=== PATIENT | male | born 1985 | race Caucasian/White ===

== ENCOUNTER 2017-04-03 14:35 | Inpatient (IN) | payer OTHER ==
[~2017-04-03] VITALS: Ht 190.5 cm; Wt 105.0 kg
[2017-04-03 15:58] LABS: MEAN CORPUSCULAR HEMOGLOBIN 30.8 pg (27.0-33.0); MEAN CORPUSCULAR HGB CONC 34.3 g/dl (32.0-36.5); RED CELL DISTRIBUTION WIDTH 13.1 % (11.5-14.5); WHITE BLOOD COUNT 7.1 K/mm3 (4.0-10.0)
[2017-04-03 16:27] LABS: METHADONE URINE NEGATIVE (NEGATIVE)
[2017-04-03 16:29] LABS: ALBUMIN 4.1 GM/DL (3.2-5.2); ALBUMIN/GLOBULIN RATIO 1.14 (1.00-1.93); ALKALINE PHOSPHATASE 107 U/L (45-117); ALT/SGPT 26 U/L (12-78); ANION GAP 10 MEQ/L (8-16); AST/SGOT 18 U/L (15-37); BILIRUBIN,DIRECT 0.2 MG/DL (0.0-0.2); BILIRUBIN,TOTAL 0.9 MG/DL (0.2-1.0); BLOOD UREA NITROGEN 15 MG/DL (7-18); CALCIUM LEVEL 8.9 MG/DL (8.5-10.1); CARBON DIOXIDE LEVEL 25 MEQ/L (21-32); CHLORIDE LEVEL 105 MEQ/L (98-107); GLOMERULAR FILTRATION RATE > 60.0 (>60); GLUCOSE, FASTING 100 MG/DL (70-105); POTASSIUM SERUM 3.9 MEQ/L (3.5-5.1); SODIUM LEVEL 140 MEQ/L (136-145); TOTAL PROTEIN 7.7 GM/DL (6.4-8.2)
[2017-04-03] MEDS ORDERED: MOM 30ML SUSPENSION UDC PO PRN (18:00)
[2017-04-03] MEDS ORDERED: ACETAMINOPHEN TAB 650MG DOSE (2X325MG) PO PRN (18:00)
[2017-04-03] MEDS ORDERED: MAALOX 30 ML SUSP *UDC PO PRN (18:00)
[2017-04-03] MEDS: traZODone 50 MG TAB PO SCH (21:00)
[2017-04-04 06:36] VITALS: BP 141/65
--- NOTE | 2017-04-04 08:21 | HPEPDOC ---
Medical History and Physical Date of Admission Apr 03, 2017 at 17:52 History and Physical PCP: [facility] ATTENDING: Dr. Richie Barnes HPI:31yoM admitted to [facility] for unspecified depressive disorder, being medically examined today. No acute medical complaints today. Denies any fevers, chills, weakness, fatigue, HIGH, CP, SOB, cough, palpitations, abdominal pain, N/V/D or changes in bowel or bladder habits. 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 Tobacco use: Denies ETOH: One to 2 times per week 2-4 drinks Illicit Drugs: Denies IV Drug Use: Denies Tattoos done unprofessionally: Denies FAMHX: Mother: Alive, diabetes, hypertension, CHF Father: Alive, hypertension Siblings: One half sibling Alive, unknown Children: Alive, well Unexpected deaths due to medical reasons: None. ROS: As noted in HPI, otherwise 11pt ROS of systems reviewed and unremarkable. PE: GEN: 31 yo M, appears stated age. Well-nourished, well developed. No acute distress. Alert and oriented x 3. Pleasant, interactive. HEENT: Normocephalic, atraumatic. Pupils are equal, round, and reactive to light. Extraocular movements are intact. No nystagmus appreciated. Sclera are nonicteric. Conjunctiva without injection. Nose midline. Nasal turbinates without bogginess. EACs both patent BL. TMs both visualized and hernandez with good cone of light, no bulging or erythema. No facial asymmetry. Moist mucous membranes. Dentition fair. Pharynx pink and moist, no cobblestoning. Neck supple , trachea midline. No lymphadenopathy or thyromegaly appreciated. CHEST: Regular rate and rhythm, +S1, +S2 LUNGS: Clear to auscultation bilaterally. No wheezes, rales, or rhonchi. Breathing appears symmetric and easy. Patient is speaking in full sentences. No accessory muscle use. ABD: Round, soft, non-tender, non-distended. +Bowel sounds throughout. No rebound or guarding. No costovertebral angle tenderness. EXT: Pulses 2+ bilaterally dorsalis pedis and radial. No lower extremity edema appreciated. SKIN: Gate, dry, warm. Capillary refill <2sec. No rashes. NEURO: Alert and oriented x 3. Cranial nerves III-XII are intact. No focal deficits appreciated. EKG: pending A&P: 31yoM admitted to [facility] for unspecified depressive disorder 1. Psych. Plan per Psychiatry. Obtain baseline EKG to assure the safety of psychiatric medications as they can prolong the QT interval. 2. Follow up with PCP on discharge. 3. Staff member Tomas present throughout exam. Vital Signs Vital Signs Date Time Temp Pulse Resp B/P (MAP) Pulse Ox O2 Delivery O2 Flow Rate FiO2 04/04/17 06:36 99.1 66 16 141/65 (90) Room Air 04/03/17 18:27 98 Laboratory Data Labs 24H Laboratory Tests 2 04/03/17 15:05: Anion Gap 10, Glomerular Filtration Rate > 60.0, Calcium Level 8.9, Aspartate Amino Transf (AST/SGOT) 18, Alanine Aminotransferase (ALT/SGPT) 26, Alkaline Phosphatase 107, Total Bilirubin 0.9, Direct Bilirubin 0.2, Total Protein 7.7, Albumin 4.1, Albumin/Globulin Ratio 1.14, Thyroid Stimulating Hormone (TSH) 0.612, Salicylates Level < 1.7L, Urine Amphetamines Screen NEGATIVE, Urine Benzodiazepines Screen NEGATIVE, Urine Opiates Screen NEGATIVE, Urine Methadone Screen NEGATIVE, Acetaminophen Level < 2.0L, Urine Barbiturates Screen NEGATIVE , Urine Phencyclidine Screen NEGATIVE, Urine Cocaine Metabolite Screen NEGATIVE , Urine Cannabinoids Screen NEGATIVE, Ethyl Alcohol Level 0.004 CBC/BMP Laboratory Tests 04/03/17 15:05 Red Blood Count 4.95, Mean Corpuscular Volume 90.0, Mean Corpuscular Hemoglobin 30.8, Mean Corpuscular Hemoglobin Concent 34.3, Red Cell Distribution Width 13.1 Home Medications No Active Prescriptions or Reported Meds Allergies Coded Allergies: No Known Allergies (Unverified , 04/03/17) Keely Hernandez Apr 04, 2017 08:21
[2017-04-04] MEDS ORDERED: hydrOXYzine 25 MG TAB PO PRN (09:15)
--- NOTE | 2017-04-04 17:01 | ECGEPIP ---
Stationary ECG Study [facility] Test Date: 2017-04-04 Pat Name: ATILIO WALLS Department: Room: [place] [address] Gender: M Metal Temperer: TOI : 1985 Requested By: Keely Hernandez Order Number: [id number] Reading MD: Richie Barnes Measurements Intervals [place] Rate: 49 P: 36 NC: 158 QRS: 80 QRSD: 97 T: 59 QT: 422 QTc: 382 Interpretive Statements SINUS BRADYCARDIA WITH MARKED SINUS ARRHYTHMIA Nonspecific ST-T wave abnormalities- likely early repolarization Comparison tracing not on file Electronically Signed On 04-04-2017 17:01:23 EDT by Richie Barnes
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
[2017-04-04 18:00] VITALS: BP 133/72
[2017-04-04] MEDS: ESCITALOPRAM OXALATE 5MG TABLET (LEXAPRO) PO SCH (20:48)
[2017-04-04] MEDS: traZODone 50 MG TAB PO SCH (21:00)
[2017-04-05 06:32] VITALS: BP 110/53
--- NOTE | 2017-04-05 14:10 | MHIPNPDOC ---
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 No significant past medical history, brought in by chain of command for suicidal ideations. Patient was seen and evaluated. He reported that he has been feeling better and has been going to group therapy and milieu treatment. He thinks that he has been learning new coping skills and also learning how psychiatry inpatient works. He opened up more about his illness and reports that even though he denied any anxiety yesterday. He has been identifying that he has anxiety attacks where he has been feeling shortness of breath, palpitation, chest tightness and tingling and numbness in the body sweating along with worrisome thoughts In his mind. He reports that it lasts for about few minutes and it goes away by itself. Discussed about relaxation techniques and breathing exercises and also discussed about when necessary medications to help with anxiety. He reports that he was able to sleep better Yesterday and has been eating fine. He reports that he does help anger issues and was going to anger management up to 4 classes, but he stopped thinking that he has learned everything but when he was trying to implement them, He was not able to do that. He is willing to go back in the outpatient to help more anger management classes. He reports he started taking medication of Lexapro, but this morning he was having some headache. Discussed the possibility of temporary side effect of medications. VITAL SIGNS: See below. CURRENT MEDICATIONS: See below. MENTAL STATUS EXAMINATION: 31yo male sitting in the chair, looks appropriate for the stated age, fair hygiene and grooming, normal psychomotor activities, no abnormal movements, cooperative with fair eye contact, speech is normal in rate, rhythm, amount and prosody, mood is 'sad & irritable', affect constricted and mood congruent, thought process is logical and goal directed, denies suicidal and homicidal ideations, denies hallucinations, no delusions elicited, aaox3, fair immediate, short term and rn long term care memory, limited insight, judgement and impulse control DIAGNOSES: 1. Major depression without psychosis. 2.. Impulse control disorder. Anxiety disorder, unspecified. ASSESSMENT: Patient seems to be opening up more about his problems and trying to learn new or coping skills MANAGEMENT PLAN:. Continue current management. Titrate the dose of Lexapro TIME SPENT: 15 minutes. Vital Signs Vital Signs Date Time Temp Pulse Resp B/P (MAP) Pulse Ox O2 Delivery O2 Flow Rate FiO2 04/05/17 06:32 97.9 48 18 110/53 (72) 04/04/17 06:36 Room Air 04/03/17 18:27 98 Current Medications Current Medications Acetaminophen (Tylenol Tab) 650 mg Q6HP PRN PO HEADACHE or DISCOMFORT; Start at 18:00; Stop 05/03/17 at 17:59 Al Hydrox/Mg Hydrox/Simethicone (Mylanta) 30 ml Q4HP PRN PO HEARTBURN/ INDIGESTION; Start 04/03/17 at 18:00; Stop 05/03/17 at 17:59 Escitalopram Oxalate (Lexapro) 5 mg QHS PO Last administered on 04/04/17t 20:48 ; Start 04/04/17 at 21:00; Stop 05/04/17 at 20:59 Home Med (Med Rec Complete!) ASDIRECTED XX ; Start 04/03/17 at 18:30; Stop 07/08 at 18:33; Status DC Hydroxyzine HCl (Atarax) 25 mg Q6HP PRN PO ANXIETY; Start 04/04/17 at 09:15; Stop 05/04/17 at 09:14 Magnesium Hydroxide (Milk Of Magnesia) 30 ml DAILYPRN PRN PO CONSTIPATION; Start 04/03/17 at 18:00; Stop 05/03/17 at 17:59 Trazodone HCl (Desyrel) 50 mg QHS PO ; Start 04/03/17 at 21:00; Stop 05/03/17 at 20:59 Allergies Coded Allergies: No Known Allergies (Unverified , 04/03/17) MATTHEW YANES MD Apr 05, 2017 14:10
[2017-04-05 18:00] VITALS: BP 136/75
[2017-04-05] MEDS: traZODone 50 MG TAB PO SCH (21:00)
[2017-04-05] MEDS: ESCITALOPRAM OXALATE 5MG TABLET (LEXAPRO) PO SCH (21:05)
[2017-04-06 06:39] VITALS: BP 101/63
--- NOTE | 2017-04-06 14:33 | MHIPNPDOC ---
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 No significant past medical history, brought in by chain of command for suicidal ideations. Patient was seen and evaluated. He reported that he has been feeling better and has been going to group therapy and milieu treatment. He thinks that he has been learning new coping skills. He reports that he was able to sleep better Yesterday and has been eating fine. He reports that he does have anger issues. He is willing to go back in the outpatient to help more anger management classes. He reports he started taking medication of Lexapro, but this morning he was having some headache. Discussed the possibility of temporary side effect of medications. He reports that he has been thinking about his relationship with his and he is not allowed to contact with her again because she has filed for order of protection through [employer], but in future he would like to get together with his and have son living together, but if she goes for divorce. He might even consider giving up on custody for his son if he is able to get unsupervised visit with son. He also reported that he thinks catastrophically and that makes him more angry whenever there is an issue which leads to him overreact. He currently denies any suicidal or homicidal ideations , but reported that when he got admitted, He was so frustrated with his that he wanted to confront her, but denies any thoughts of killing anyone. VITAL SIGNS: See below. CURRENT MEDICATIONS: See below. MENTAL STATUS EXAMINATION: 31yo male sitting in the chair, looks appropriate for the stated age, fair hygiene and grooming, normal psychomotor activities, no abnormal movements, cooperative with fair eye contact, speech is normal in rate, rhythm, amount and prosody, mood is 'sad & irritable', affect constricted and mood congruent, thought process is logical and goal directed, denies suicidal and homicidal ideations, denies hallucinations, no delusions elicited, aaox3, fair immediate, short term and jail memory, limited insight, judgement and impulse control DIAGNOSES: 1. Major depression without psychosis. 2.. Impulse control disorder. Anxiety disorder, unspecified. ASSESSMENT: Patient seems to be opening up more about his problems and trying to learn newer coping skills MANAGEMENT PLAN:. Continue current management. Titrate the dose of Lexapro TIME SPENT: 15 minutes. Vital Signs Vital Signs Date Time Temp Pulse Resp B/P (MAP) Pulse Ox O2 Delivery O2 Flow Rate FiO2 04/06/17 06:39 97.6 65 16 101/63 (76) 04/04/17 06:36 Room Air 04/03/17 18:27 98 Current Medications Current Medications Acetaminophen (Tylenol Tab) 650 mg Q6HP PRN PO HEADACHE or DISCOMFORT; Start at 18:00; Stop 05/03/17 at 17:59 Al Hydrox/Mg Hydrox/Simethicone (Mylanta) 30 ml Q4HP PRN PO HEARTBURN/ INDIGESTION; Start 04/03/17 at 18:00; Stop 05/03/17 at 17:59 Escitalopram Oxalate (Lexapro) 5 mg QHS PO Last administered on 04/05/17t 21:05 ; Start 04/04/17 at 21:00; Stop 05/04/17 at 20:59 Home Med (Med Rec Complete!) ASDIRECTED XX ; Start 04/03/17 at 18:30; Stop 07/08 at 18:33; Status DC Hydroxyzine HCl (Atarax) 25 mg Q6HP PRN PO ANXIETY; Start 04/04/17 at 09:15; Stop 05/04/17 at 09:14 Magnesium Hydroxide (Milk Of Magnesia) 30 ml DAILYPRN PRN PO CONSTIPATION; Start 04/03/17 at 18:00; Stop 05/03/17 at 17:59 Trazodone HCl (Desyrel) 50 mg QHS PO ; Start 04/03/17 at 21:00; Stop 05/03/17 at 20:59 Allergies Coded Allergies: No Known Allergies (Unverified , 04/03/17) MATTHEW YANES MD Apr 06, 2017 14:33
[2017-04-06 18:00] VITALS: BP 116/57
[2017-04-06] MEDS: traZODone 50 MG TAB PO SCH (21:00)
[2017-04-06] MEDS: ESCITALOPRAM OXALATE 10 MG TAB (LEXAPRO) PO SCH (21:05)
[2017-04-07 06:48] VITALS: BP 125/56
[2017-04-07 18:00] VITALS: BP 129/68
--- NOTE | 2017-04-07 18:10 | MHIPN ---
DATE: 04/07/2017 CHIEF COMPLAINT: Feels better. SUBJECTIVE: Is seen for followup in the presence of staff. Says feels better, less anxious and less irritated, also less depressed. Sleep is fair. MENTAL STATUS EXAMINATION: Neat, cooperative. No agitation. Coherent. Affect is reactive, fairly broad. At present, denies any suicidal thoughts or intents. No homicidal ideas of intents. Currently, no evidence of any psychosis. Cognition is grossly intact. Judgment is good. Insight is possibly improved. ASSESSMENT: 1. Major depressive disorder. 2. Possibility of impulse control disorder needs to be considered. PLAN: Continue current care, observations, and I would suggest a family meeting with his prior to considering discharge to help address marital difficulties. He is to be encouraged to participate in activities on the unit. VITAL SIGNS: Blood pressure 125/56, pulse 54, temperature is 98.1.
[2017-04-07] MEDS: traZODone 50 MG TAB PO SCH (21:00)
[2017-04-07] MEDS: ESCITALOPRAM OXALATE 10 MG TAB (LEXAPRO) PO SCH (21:10)
[2017-04-08 06:50] VITALS: BP 118/55
[2017-04-08 18:00] VITALS: BP 115/55
[2017-04-08] MEDS: traZODone 50 MG TAB PO SCH (20:35)
[2017-04-08] MEDS: ESCITALOPRAM OXALATE 10 MG TAB (LEXAPRO) PO SCH (21:06)
[2017-04-09 06:00] VITALS: BP 111/56
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
[2017-04-09 18:00] VITALS: BP 136/70
[2017-04-09] MEDS: traZODone 50 MG TAB PO SCH ×2 (20:22→21:05)
[2017-04-09] MEDS: ESCITALOPRAM OXALATE 10 MG TAB (LEXAPRO) PO SCH (21:04)
[2017-04-10 06:00] VITALS: BP 116/61
--- NOTE | 2017-04-10 13:26 | MHIPN ---
DATE: 04/10/2017 Patient today not expressing significant feelings of depression nor suicidal ideation. As reported previously, patient has had feelings of being overwhelmed and stressed, especially after having his first son. He had been quite self critical about his ability to take care of the child. He has had violent episodes and most recently as mentioned yesterday, significant alcohol intake on weekends. He has given us permission to speak to his . I am suggesting perhaps that I call his for further information as well as having Posada call. Medication at this time will be as per . I increased his citalopram to 20 mg nightly. MENTAL STATUS EXAMINATION: Eye contact is good. Speech is normal. No disturbance of thought process. No loose associations. Orientation is full in three spheres. Judgment and insight to be determined. No abnormal psychotic thoughts. Recent and remote memory intact. Attention and concentration intact. No disturbance of language. Full fund of knowledge. Mood is good. Affect is neutral. DIAGNOSIS: Adjustment disorder with depressed mood. Rule out bipolar disorder. ADDENDUM: The sixth sentence of the first paragraph should read as follows: I am suggesting perhaps that I call his for further information. The first sentence of the second paragraph should read as follows: Medication at this time will be as per Dr. Silva. Addendum Dictated: MAYO 04/19/2017 1413 Addendum Transcribed: leo 05/01/2017 [id number] SARATH
[2017-04-10 18:00] VITALS: BP 122/64
[2017-04-10] MEDS: ESCITALOPRAM OXALATE 10 MG TAB (LEXAPRO) PO SCH (20:49)
[2017-04-11 07:00] VITALS: BP 123/66
--- NOTE | 2017-04-11 15:30 | MHIPN ---
DATE: 04/11/2017 Fernando Bateman was seen by me today and discussed in staff. I suggested to staff that they contact his , who he is from, for the purpose of meeting with her concerning his diagnosis and their marital status. I met with the patient, whose mood was fair. He does not think he is bipolar as his has suggested, but thinks he just reacts badly to situations. He states he needs to stop lying to his and needs to get control of his temper. This will be discussed with his tomorrow. MENTAL STATUS EXAMINATION: Speech is normal. No disturbance of thought process. No loose associations. No abnormal or psychotic thoughts. Judgment and insight are poor. Fully oriented. Recent and remote memory intact. He has full attention and concentration. No disturbance of language. Full fund of knowledge. Mood is fair, affect is congruent. PLAN: Meeting tomorrow with patient and . No change in medication at this time.
[2017-04-11 18:25] VITALS: BP 127/70
[2017-04-11] MEDS: traZODone 50 MG TAB PO SCH (21:00)
[2017-04-11] MEDS: ESCITALOPRAM OXALATE 10 MG TAB (LEXAPRO) PO SCH (21:05)
[2017-04-12 07:02] VITALS: BP 115/60
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
[2017-04-12 18:00] VITALS: BP 126/61
[2017-04-12] MEDS: ESCITALOPRAM OXALATE 10 MG TAB (LEXAPRO) PO SCH (20:49)
[2017-04-12] MEDS: traZODone 50 MG TAB PO SCH (20:49)
[2017-04-13 06:23] VITALS: BP 121/58
--- NOTE | 2017-04-13 14:07 | WAPSY-FUP ---
DATE: 04/13/2017 Mr. Bateman discussed with me that he feels improved on his Lexapro. He would like to return to [facility] and engage with behavioral health anger management and continue to take his medication. He says he feels significantly better taking Lexapro and that he feels less angry and upset during arguments. He does not feel that he has a significantly uncontrolled mood disorder. He states he has over reacted in the past and feels that his suicide statements that he made in the past were related to his concerns about his previous marriage ending. MENTAL STATUS EXAMINATION: Speech is normal. No disturbance of thought process. No loose associations. No abnormal or psychotic thoughts. Judgment and insight are intact, fully oriented. Recent and remote memory are intact. Attention and concentration are normal. Fund of knowledge is normal. Mood is improved. Affect is brighter. PLAN: Discharge patient Sunday following chain of command meeting. Recommendation for behavioral health followup as above.
[2017-04-13 18:25] VITALS: BP 136/64
[2017-04-13] MEDS: traZODone 50 MG TAB PO SCH (20:41)
[2017-04-13] MEDS: ESCITALOPRAM OXALATE 10 MG TAB (LEXAPRO) PO SCH (21:01)
[2017-04-14 07:13] VITALS: BP 122/56
[2017-04-14 18:18] VITALS: BP 136/59
[2017-04-14] MEDS: traZODone 50 MG TAB PO SCH (20:22)
[2017-04-14] MEDS: ESCITALOPRAM OXALATE 10 MG TAB (LEXAPRO) PO SCH (21:00)
[2017-04-15 06:24] VITALS: BP 121/62
[2017-04-15 18:23] VITALS: BP 122/58
[2017-04-15] MEDS: ESCITALOPRAM OXALATE 10 MG TAB (LEXAPRO) PO SCH (20:53)
[2017-04-15] MEDS: traZODone 50 MG TAB PO SCH (21:21)
[2017-04-16 06:43] VITALS: BP 120/60
--- NOTE | 2017-04-16 11:28 | IPN ---
DATE OF SERVICE: 04/16/2017 I met with Mr. Bateman today. He was informed over the weekend that his is filing for divorce. He states "How am I supposed to live without my and son?" He states "There is no point in trying." He states "She doesn't want to be with me." He states "There is no sense in trying to work." Apparently, over the weekend, he told her he would stay on medications but would consider stopping them. He states he feels suicidal all the time and that at one time soon he hopes he has the courage to kill himself. He states he is sick of this life. This replicates his statement that his states he made that he was "hoping to go to [place] so he could ." MENTAL STATUS EXAMINATION: Speech is slow. Thought processes slow. No loose associations. No psychotic thoughts. Positive suicidal ideation. Judgment and insight poor. He is fully oriented. Recent and remote memory intact. Attention and concentration intact. Language is within normal limits. Full fund of knowledge. Mood is low. Affect is sad. IMPRESSION: Major depression. PLAN: Will continue the hospitalization and notify chain of command that this man needs long-term treatment.
[2017-04-16 18:00] VITALS: BP 101/55
[2017-04-16] MEDS: traZODone 50 MG TAB PO SCH (20:52)
[2017-04-16] MEDS: ESCITALOPRAM OXALATE 10 MG TAB (LEXAPRO) PO SCH (20:52)
[2017-04-17 06:19] VITALS: BP 108/63
--- NOTE | 2017-04-17 16:44 | MHIPN ---
DATE: 04/17/2017 I met with Fernando Bateman today. He states he is feeling better. We have taken him off of one-to-one. He states the reality of his him has become quite painful the more he talked about it, but today he is feeling he is going to have to being "dealing with it." Eye contact still poor. MENTAL STATUS EXAMINATION: His speech continues to be slow. His thought processes continue to be slow. He has no psychotic thoughts. Today he denies any suicidal ideation or intent. Judgment and insight are poor. He is fully oriented. Recent and remote memory are intact. Attention and concentration intact. Language is within normal limits. Full fund of knowledge. Mood is low. Affect is sad. IMPRESSION: Continues to be major depression. Due to his depression and what may be personality difficulties, we continue to suggest the possibility of long-term treatment.
[2017-04-17 18:00] VITALS: BP 122/64
[2017-04-17] MEDS: ESCITALOPRAM OXALATE 10 MG TAB (LEXAPRO) PO SCH (21:01)
[2017-04-17] MEDS: traZODone 50 MG TAB PO SCH (21:01)
[2017-04-18 06:59] VITALS: BP 117/57
--- NOTE | 2017-04-18 16:08 | MHIPN ---
DATE: 04/18/2017 I met with Fernando Bateman today. His eye contact is improved and states he is feeling better. He states he is only have side effect of sweating from his medication. He repeats that he is no longer suicidal. A longer-term treatment has been suggested to him due to problems that he feels have been festering for a long period of time. MENTAL STATUS EXAMINATION: Speech is of normal rate and rhythm. Thought processes seem also of a normal rate. He denies psychotic thoughts. He denies any suicidal ideation or intent. Judgment and insight are improving. He is fully oriented. Recent and remote memory intact. Attention and concentration intact. Language within normal limits. Full fund of knowledge. Mood is neutral. Affect is neutral. DIAGNOSES: Major depression and past history suggestive of personality difficulties. Long-term treatment is planned.
[2017-04-18 18:00] VITALS: BP 150/72
[2017-04-18] MEDS: ESCITALOPRAM OXALATE 10 MG TAB (LEXAPRO) PO SCH (21:01)
[2017-04-18] MEDS: traZODone 50 MG TAB PO SCH (21:01)
[2017-04-19 06:20] VITALS: BP 111/59
--- NOTE | 2017-04-19 11:06 | MHIPN ---
DATE: 04/19/2017 Fernando Bateman [place] going [place] is prepared to go to senior care treatment. We will be discharging him in the morning early. MENTAL STATUS EXAMINATION: Speech is normal. Thought processes normal. No loose associations. No psychotic thoughts. Judgment and insight poor. Orientation in three spheres. No difficulties with recent and remote memory. Attention and concentration are intact. No disturbance of language. Full fund of knowledge. Mood is neutral. Affect is neutral. DIAGNOSES: Major depression. Personality disorder traits. PLAN: Long treatment is planned.
[2017-04-19] MEDS ORDERED: ESCI10TA2 PO (12:21)
--- NOTE | 2017-04-19 16:24 | MHDS ---
DATE OF ADMISSION: 04/03/2017 DATE OF DISCHARGE: This is a 31-year-old male, for 1 and 1/2 years with a child of 9 months. Domiciled in the [facility] [place]. 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 He reported he has been feeling depressed with suicidal ideations because he has been going through a lot of stress. He thinks approximately 9 months ago, when his child was born, that he began feeling overwhelmed and stressed. He reported he was crying, blaming himself for not having paternal instincts and not able to take care of his child well. He broke glass and banged his head against the wall. Since then, his mood has been more depressed. He was intermittently kicked out of his house by his for getting angry and aggressive. He has been living alone and needs permission to see his and supervision from his [id number] to see his son. He reported he has been having suicidal ideation for 5-6 months, mostly passive in nature, but he has stated to his that he was hoping he would go to [place] and get killed. In addition, following a meeting and when his stated she wanted a divorce, he stated to us that he saw no reason to go on or to live. He experienced depressed mood, decreased energy, poor motivation, and feelings of guilt. He has made numerous suicidal threats. His hematology was unremarkable. His serum chemistries were unremarkable. His ethyl alcohol level was 0.004. COURSE ON THE UNIT: Patient did attend group therapy and milieu therapy and was started on medication, but stated that he was still hopeful that he would be able to get back together with his . A meeting with his was set up by myself and José Luis Burgess. Patient admitted to buying five bottles of vodka the last weekend prior to admission. Patient stated following meeting with the that "there was no point trying, she doesn't want to be with me, and there is no sense in trying to work." He had volunteered to his that he would stay on medications and consider therapy, but based on their difficulty she felt that their marriage was no longer possible. The decision was that this patient, due to his past history and diagnosis of major depression with personality disorder traits, would require longer term treatment and this was arranged with Jacquelyn Moffett. PAST PSYCHIATRIC HISTORY: Patient was seen three times at behavioral health, but has never been on psychiatric medications. FAMILY HISTORY: Denied. SUBSTANCE ABUSE HISTORY: As stated above. PAST MEDICAL AND SURGICAL HISTORY: None reported. MENTAL STATUS EXAMINATION ON DISCHARGE: Speech was slow. Thought processes were intact. No loose associations. No psychotic thoughts. Judgment and insight poor. Fully oriented. Recent and remote memory intact. Attention and concentration normal. No disturbance of language. Full fund of knowledge. Mood is euthymic. Affect is flat. DISCHARGE DIAGNOSES: Major depression. Personality disorder traits. Discharged to long-term care as per chain of command.
[2017-04-19 18:00] VITALS: BP 129/74
[2017-04-19] MEDS: traZODone 50 MG TAB PO SCH (20:39)
[2017-04-19] MEDS: ESCITALOPRAM OXALATE 10 MG TAB (LEXAPRO) PO SCH (20:39)
== END 2017-04-20 02:45 | DRG 881 ==
LOC: M ED 14:35 → M ED INP 17:52 → M PSY 18:35
PROVIDERS: ADMIT Psychiatry & Neurology Psychiatry; ATTEND Psychiatry & Neurology Child & Adolescent Psychiatry
DX: F32.9 Major depressive disorder, single episode, unspecified (principal); F60.9 Personality disorder, unspecified

== ENCOUNTER 2017-06-08 07:23 | Inpatient (IN) | payer OTHER ==
[~2017-06-08] VITALS: Ht 190.5 cm; Wt 103.0 kg
[~2017-06-08 07:23] MED LIST: ESCI10TA2 PO
[2017-06-08 08:42] LABS: MEAN CORPUSCULAR HEMOGLOBIN 30.9 pg (27.0-33.0); MEAN CORPUSCULAR VOLUME 88.4 fl (80.0-96.0); PLATELET COUNT, AUTOMATED 251 10^3/uL (150-450); RED CELL DISTRIBUTION WIDTH 12.2 % (11.5-14.5); WHITE BLOOD COUNT 5.9 10^3/uL (4.0-10.0)
[2017-06-08 09:02] LABS: ALBUMIN 4.1 GM/DL (3.2-5.2); ALBUMIN/GLOBULIN RATIO 1.11 (1.00-1.93); ALKALINE PHOSPHATASE 113 U/L (45-117); ALT/SGPT 26 U/L (12-78); ANION GAP 7 MEQ/L (8-16); AST/SGOT 14 U/L (7-37); BILIRUBIN,DIRECT < 0.1 MG/DL (0.0-0.2); BILIRUBIN,TOTAL 0.5 MG/DL (0.2-1.0); BLOOD UREA NITROGEN 20 MG/DL (7-18); CARBON DIOXIDE LEVEL 29 MEQ/L (21-32); CHLORIDE LEVEL 104 MEQ/L (98-107); CREATININE FOR GFR 1.24 MG/DL (0.70-1.30); GLOMERULAR FILTRATION RATE > 60.0 (>60); GLUCOSE, FASTING 113 MG/DL (70-105); POTASSIUM SERUM 4.1 MEQ/L (3.5-5.1); SODIUM LEVEL 140 MEQ/L (136-145); TOTAL PROTEIN 7.8 GM/DL (6.4-8.2)
[2017-06-08 09:11] LABS: METHADONE URINE NEGATIVE (NEGATIVE)
[2017-06-08] MEDS ORDERED: MAALOX 30 ML SUSP *UDC PO PRN (10:15)
[2017-06-08] MEDS ORDERED: ACETAMINOPHEN TAB 650MG DOSE (2X325MG) PO PRN (10:15)
[2017-06-08] MEDS ORDERED: OLANZapine ORAL DISINTEGRATING TAB 5MG PO PRN (10:15)
[2017-06-08] MEDS ORDERED: MOM 30ML SUSPENSION UDC PO PRN (10:15)
[2017-06-08] MEDS ORDERED: LEXA1TAB2 PO (10:31)
[2017-06-08] MEDS ORDERED: HYDR50CA2 PO (10:31)
[2017-06-08 11:00] VITALS: BP 124/73
[2017-06-08] MEDS: ESCITALOPRAM OXALATE 10 MG TAB (LEXAPRO) PO SCH (12:40)
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
[2017-06-08 18:22] VITALS: BP 106/56
[2017-06-08] MEDS: QUEtiapine FUMARATE 25 MG TAB PO SCH (20:38)
[2017-06-09 06:39] VITALS: BP 118/53
[2017-06-09] MEDS: ESCITALOPRAM OXALATE 10 MG TAB (LEXAPRO) PO SCH (08:57)
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
[2017-06-09 18:00] VITALS: BP 109/55
[2017-06-09] MEDS: QUEtiapine FUMARATE 25 MG TAB PO SCH (21:20)
[2017-06-10 06:52] VITALS: BP 101/54
[2017-06-10] MEDS: ESCITALOPRAM OXALATE 10 MG TAB (LEXAPRO) PO SCH (08:48)
--- NOTE | 2017-06-10 16:00 | MHIPNPDOC ---
[facility] Progress Note Progress Note DATE OF SERVICE: 06/10/17 HISTORY: As per ED report: "Patient is a 31 -year-old , male, who presented to ED after D/C from [facility]. Pt stated thinks about +SI all the time, like an alcoholic; even if you stop the act, you still have to learn to cope with the thoughts. Pt reported +SI all the time with a plan to use shotgun or razor to wrist. Pt explaned in great detail how to place razor in correct position for a successful SI. Pt reported spent 5 weeks @ [place] rehab then returned to [facility]. Threatened +HI towards , went AWOL from [facility] back home to [place]. found him, arrested him on this past Sun.and went to [facility]. Pt was escorted back to [facility] yesterday, spent night at [facility] and brought to ED via [employer] [facility] [employer] [facility] this morning. Pt has several legal issues pending. Pt reported increased anger about going for divorce. Pt currently has an OP against him. Pt stated "went through all this rehab thinking we were going to be a family again". Pt reported has no incentive to get better, would rather live in assisted. Pt reported in [employer] for 3.5 years, 1 deployment to [facility] 2014. " VITAL SIGNS: See below. NEW TEST RESULTS: N/A CURRENT MEDICATIONS: See below. MENTAL STATUS EXAMINATION: Patient is a 31year old male, who is alert, pleasant, cooperative, with good eye contact, fair hygiene and grooming Speech: Normal in rate, tone and volume Language skills are fair. Thought processes including: Intact. Thought content: Goal directed: Good. Description of associations: Good. Description of abnormal or psychotic thoughts: Denies auditory and visual hallucinations, but he continues to report paranoid ideation (less today). Currently denies suicidal and homicidal thoughts. Judgment: Limited. Insight: Limited. Orientation: Oriented 3. Recent and remote memory: Intact. Attention span and concentration: Fair. Language: Normal. Fund of knowledge: Average. Mood: Slightly less depressed Affect: Slightly less depressed DIAGNOSES: 1. Major depressive disorder, recurrent, severe with psychotic features. ASSESSMENT: Patient reports he feels more energetic today, he feels medications are helping him but he says that initially, early in the morning he was sad because he has some bad dreams that were very vivid. The morning went by he felt better and he has felt less depressed. He reported that he is interacting well with peers and staff, has been watching TVs and feels that the medication is helping him because he feels a little bit less depressed and less anxious. MANAGEMENT PLAN.: Will continue on the same medications TIME SPENT: 20 minutes. Vital Signs Vital Signs Date Time Temp Pulse Resp B/P (MAP) Pulse Ox O2 Delivery O2 Flow Rate FiO2 06/10/17 06:52 98.2 61 14 101/54 (70) Room Air 06/08/17 10:18 96 Current Medications Current Medications Acetaminophen (Tylenol Tab) 650 mg Q6HP PRN PO HEADACHE or DISCOMFORT; Start 06/08/17 at 10:15; Stop 07/08/17 at 10:14 Al Hydrox/Mg Hydrox/Simethicone (Mylanta) 30 ml Q4HP PRN PO HEARTBURN/ INDIGESTION; Start 06/08/17 at 10:15; Stop 07/08/17 at 10:14 Escitalopram Oxalate (Lexapro) 20 mg DAILY PO Last administered on 06/09/17 08:57; Start 06/08/17 at 09:00; Stop 06/09/17 at 14:02; Status DC Escitalopram Oxalate (Lexapro) 30 mg DAILY PO Last administered on 06/10/17 08:48; Start 06/10/17 at 09:00; Stop 07/10/17 at 08:59 Home Med (Med Rec Complete!) ASDIRECTED XX ; Start 06/08/17 at 10:45; Stop at 10:45; Status DC Magnesium Hydroxide (Milk Of Magnesia) 30 ml DAILYPRN PRN PO CONSTIPATION; Start 06/08/17 at 10:15; Stop 07/08/17 at 10:14 Olanzapine (ZyPREXA ZYDIS) 10 mg Q4HP PRN PO ANXIETY/AGITATION; Start at 10:15; Stop 07/08/17 at 10:14 Quetiapine Fumarate (SEROquel) 75 mg QHS PO Last administered on 06/09/17 21: 20; Start 06/08/17 at 21:00; Stop 07/08/17 at 20:59 Allergies Coded Allergies: No Known Allergies (Unverified , 04/03/17) EMILIO FIORE MD Jun 10, 2017 16:00
[2017-06-10 18:00] VITALS: BP 110/68
[2017-06-10] MEDS: QUEtiapine FUMARATE 25 MG TAB PO SCH (21:47)
[2017-06-11 06:00] VITALS: BP 104/57
--- NOTE | 2017-06-11 07:29 | HPE ---
DATE OF ADMISSION: 06/08/2017 HISTORY OF PRESENT ILLNESS: Please refer to the psychiatric history and evaluation for further details on this admission. This examination and history is intended for medical issues which may need treatment, followup or consultation on this 31-year-old male. PRIMARY CARE PROVIDER: [facility]. ALLERGIES: No known drug allergies SOCIAL HISTORY: He is a soldier, , currently stationed at [employer]. ETOH - States he has not drank since his last admission. He does have a history of alcohol addiction. Smokes - none. Recreational drug use - none. PAST MEDICAL HISTORY: Depression. PAST SURGICAL HISTORY: None. FAMILY HISTORY: Mother has diabetes, hypertension and congestive heart failure. Father hypertension. LABORATORY DATA: CBC was normal. CMP was normal Tox screen was negative. REVIEW OF SYSTEMS: 10-systems review was done and was unremarkable . PHYSICAL EXAMINATION: 31-year-old male in no acute distress. Height 75 inches, weight 104.5 kg. BMI 28.8. The patient is alert and oriented times. three Pupils equal and reactive to light. Extraocular movements intact. Cornea and sclera clear. Conjunctiva normal. No facial asymmetry. Pharynx, tongue, and gums pink and moist. Tongue is midline. Neck is supple, without lymphadenopathy. No thyromegaly. No goiter Chest clear to auscultation, without wheeze or retraction. Heart is regular. Abdomen benign. Bowel sounds positive. /Rectal: Not done. Extremities show equal strength. Full range of motion. no cyanosis, clubbing or edema. Peripheral pulses equal and palpable bilaterally. Skin is warm and dry. IMPRESSION AND PLAN: 1. Psychiatric: Plan per psychiatry. 2. EKG on file. Signs of bradycardia. 3. No acute medical issues.
[2017-06-11] MEDS: ESCITALOPRAM OXALATE 10 MG TAB (LEXAPRO) PO SCH (08:36)
--- NOTE | 2017-06-11 11:05 | MHIPNPDOC ---
[facility] Progress Note Progress Note DATE OF SERVICE: 06/11/17 HISTORY: As per ED report: "Patient is a 31 -year-old , male, who presented to ED after D/C from [facility]. Pt stated thinks about +SI all the time, like an alcoholic; even if you stop the act, you still have to learn to cope with the thoughts. Pt reported +SI all the time with a plan to use shotgun or razor to wrist. Pt explaned in great detail how to place razor in correct position for a successful SI. Pt reported spent 5 weeks @ [place] rehab then returned to [facility]. Threatened +HI towards , went AWOL from [facility] back home to [place]. found him, arrested him on this past Sun.and went [facility]. Pt was escorted back to [facility] yesterday, spent night at [facility] and brought to ED via [employer] [facility] this morning. Pt has several legal issues pending. Pt reported increased anger about going for divorce. Pt currently has an OP against him. Pt stated "went through all this rehab thinking we were going to be a family again". Pt reported has no incentive to get better, would rather live in [place]. Pt reported in [email or web address] for 3.5 years, 1 deployment to [employer] 2014. " VITAL SIGNS: See below. NEW TEST RESULTS: N/A CURRENT MEDICATIONS: See below. MENTAL STATUS EXAMINATION: Patient is a 31year old male, who is alert, pleasant, cooperative, with good eye contact, fair hygiene and grooming Speech: Normal in rate, tone and volume, spontaneous and fluent Language skills are fair. Thought processes including: Irrational Thought content: Painful thoughts about his current divorce process Description of associations: Good. Description of abnormal or psychotic thoughts: Denies auditory and visual hallucinations. He denies suicidal and homicidal thought and feels less paranoid Judgment: Limited. Insight: Limited. Orientation: Oriented 3. Recent and remote memory: Intact. Attention span and concentration: Fair. Language: Average Fund of knowledge: Adequate Mood: Slightly less depressed Affect: Slightly less depressed DIAGNOSES: 1. Major depressive disorder, recurrent, severe with psychotic features. ASSESSMENT: Patient is becoming more insightful, he is beginning to accept his divorce even though it still hurts him. He still depressed but he hasn't had suicidal thoughts. I will increase Lexapro to 40 mg because he has been more energetic and more positive since it was increased to 30. No medication side effects have been reported. MANAGEMENT PLAN.: Will continue on the same medications but we will increase Lexapro to 40 mg by mouth daily TIME SPENT: 20 minutes. Vital Signs Vital Signs Date Time Temp Pulse Resp B/P (MAP) Pulse Ox O2 Delivery O2 Flow Rate FiO2 06/11/17 06:00 98.0 57 16 104/57 (73) 06/10/17 06:52 Room Air 06/08/17 10:18 96 Current Medications Current Medications Acetaminophen (Tylenol Tab) 650 mg Q6HP PRN PO HEADACHE or DISCOMFORT; Start 06/08/17 at 10:15; Stop 07/08/17 at 10:14 Al Hydrox/Mg Hydrox/Simethicone (Mylanta) 30 ml Q4HP PRN PO HEARTBURN/ INDIGESTION; Start 06/08/17 at 10:15; Stop 07/08/17 at 10:14 Escitalopram Oxalate (Lexapro) 20 mg DAILY PO Last administered on 06/09/17 08:57; Start 06/08/17 at 09:00; Stop 06/09/17 at 14:02; Status DC Escitalopram Oxalate (Lexapro) 30 mg DAILY PO Last administered on 06/11/17 08:36; Start 06/10/17 at 09:00; Stop 07/10/17 at 08:59 Home Med (Med Rec Complete!) ASDIRECTED XX ; Start 06/08/17 at 10:45; Stop at 10:45; Status DC Magnesium Hydroxide (Milk Of Magnesia) 30 ml DAILYPRN PRN PO CONSTIPATION; Start 06/08/17 at 10:15; Stop 07/08/17 at 10:14 Olanzapine (ZyPREXA ZYDIS) 10 mg Q4HP PRN PO ANXIETY/AGITATION; Start at 10:15; Stop 07/08/17 at 10:14 Quetiapine Fumarate (SEROquel) 75 mg QHS PO Last administered on 06/10/17 21: 47; Start 06/08/17 at 21:00; Stop 07/08/17 at 20:59 Allergies Coded Allergies: No Known Allergies (Unverified , 04/03/17) EMILIO FIORE MD Jun 11, 2017 11:05
[2017-06-11 18:00] VITALS: BP 146/81
[2017-06-11] MEDS: QUEtiapine FUMARATE 25 MG TAB PO SCH (21:08)
[2017-06-12 06:35] VITALS: BP 102/54
[2017-06-12] MEDS: ESCITALOPRAM OXALATE 10 MG TAB (LEXAPRO) PO SCH (08:31)
--- NOTE | 2017-06-12 14:44 | MHIPNPDOC ---
[facility] Progress Note Progress Note DATE OF SERVICE: 06/12/17 HISTORY: As per ED report: "Patient is a 31 -year-old , male, who presented to ED after D/C from [facility]. Pt stated thinks about +SI all the time, like an alcoholic; even if you stop the act, you still have to learn to cope with the thoughts. Pt reported +SI all the time with a plan to use shotgun or razor to wrist. Pt explaned in great detail how to place razor in correct position for a successful SI. Pt reported spent 5 weeks @ [place]hab then returned to [facility]. Threatened +HI towards , went AWOL from [facility] back home to [place]. found him, arrested him on this past Sun.and went to [facility]. Pt was escorted back to [facility] yesterday, spent night at [facility] and brought to ED via [employer] [facility] this morning. Pt has several legal issues pending. Pt reported increased anger about going for divorce. Pt currently has an OP against him. Pt stated "went through all this rehab thinking we were going to be a family again". Pt reported has no incentive to get better, would rather live in care home. Pt reported in [employer] for 3.5 years, 1 deployment to [facility] 2014. " VITAL SIGNS: See below. NEW TEST RESULTS: N/A CURRENT MEDICATIONS: See below. MENTAL STATUS EXAMINATION: Patient is a 31year old male, who is alert, pleasant, cooperative, with good eye contact, fair hygiene and grooming Speech: Spontaneous and fluent Language skills are good Thought processes including: coherent Thought content: Anxious thoughts about living alone Description of associations: Good. Description of abnormal or psychotic thoughts: Denies auditory and visual hallucinations. He denies suicidal and homicidal thought and feels less paranoid Judgment: Limited. Insight: Limited. Orientation: Oriented 3. Recent and remote memory: Intact. Attention span and concentration: Fair. Language: Average Fund of knowledge: Adequate Mood: Less depressed Affect: Less anxious DIAGNOSES: 1. Major depressive disorder, recurrent, severe with psychotic features. ASSESSMENT: Patient would like to remain hospitalized and not being discharged because he feels safe here, this is like an escape for him. I spoke with him because i wanted to know how he is feeling, if he felt safe to be discharged because I won't be able to discharge him afterwards, because [facility] doesn't accept discharges on Sunday. MANAGEMENT PLAN.: Will continue on the same treatment plan. TIME SPENT: 30 MINUTES Vital Signs Vital Signs Date Time Temp Pulse Resp B/P (MAP) Pulse Ox O2 Delivery O2 Flow Rate FiO2 06/12/17 06:35 98.4 54 16 102/54 (70) 06/10/17 06:52 Room Air 06/08/17 10:18 96 Current Medications Current Medications Acetaminophen (Tylenol Tab) 650 mg Q6HP PRN PO HEADACHE or DISCOMFORT; Start 06/08/17 at 10:15; Stop 07/08/17 at 10:14 Al Hydrox/Mg Hydrox/Simethicone (Mylanta) 30 ml Q4HP PRN PO HEARTBURN/ INDIGESTION; Start 06/08/17 at 10:15; Stop 07/08/17 at 10:14 Escitalopram Oxalate (Lexapro) 20 mg DAILY PO Last administered on 06/09/17 08:57; Start 06/08/17 at 09:00; Stop 06/09/17 at 14:02; Status DC Escitalopram Oxalate (Lexapro) 30 mg DAILY PO Last administered on 06/11/17 08:36; Start 06/10/17 at 09:00; Stop 06/11/17 at 11:31; Status DC Escitalopram Oxalate (Lexapro) 40 mg DAILY PO Last administered on 06/12/17 08:31; Start 06/12/17 at 09:00; Stop 07/12/17 at 08:59 Home Med (Med Rec Complete!) ASDIRECTED XX ; Start 06/08/17 at 10:45; Stop at 10:45; Status DC Magnesium Hydroxide (Milk Of Magnesia) 30 ml DAILYPRN PRN PO CONSTIPATION; Start 06/08/17 at 10:15; Stop 07/08/17 at 10:14 Olanzapine (ZyPREXA ZYDIS) 10 mg Q4HP PRN PO ANXIETY/AGITATION; Start at 10:15; Stop 07/08/17 at 10:14 Quetiapine Fumarate (SEROquel) 75 mg QHS PO Last administered on 06/11/17 21: 08; Start 06/08/17 at 21:00; Stop 07/08/17 at 20:59 Allergies Coded Allergies: No Known Allergies (Unverified , 04/03/17) EMILIO FIORE MD Jun 12, 2017 14:44
[2017-06-12 18:00] VITALS: BP 150/86
[2017-06-12] MEDS: QUEtiapine FUMARATE 50 MG TAB PO SCH (21:18)
[2017-06-13 06:26] VITALS: BP 110/55
[2017-06-13] MEDS: ESCITALOPRAM OXALATE 10 MG TAB (LEXAPRO) PO SCH (08:46)
[2017-06-13 18:13] VITALS: BP 146/78
[2017-06-13] MEDS ORDERED: hydrOXYzine 25 MG TAB PO PRN (18:30)
--- NOTE | 2017-06-13 18:34 | MHIPNPDOC ---
[facility] Progress Note Progress Note DATE OF SERVICE: 06/13/17 HISTORY: As per ED report: "Patient is a 31 -year-old , male, who presented to ED after D/C from [facility]. Pt stated thinks about +SI all the time, like an alcoholic; even if you stop the act, you still have to learn to cope with the thoughts. Pt reported +SI all the time with a plan to use shotgun or razor to wrist. Pt explaned in great detail how to place razor in correct position for a successful SI. Pt reported spent 5 weeks @ [place]hab then returned to [facility]. Threatened +HI towards , went AWOL from [facility] back home to [place]. found him, arrested him on this past Sun.and went to [facility]. Pt was escorted back to [facility] yesterday, spent night at [facility] and brought to ED via [email or web address] [facility] this morning. Pt has several legal issues pending. Pt reported increased anger about going for divorce. Pt currently has an OP against him. Pt stated "went through all this rehab thinking we were going to be a family again". Pt reported has no incentive to get better, would rather live in [facility]. Pt reported in [employer] for 3.5 years, 1 deployment to [facility] 2014. " VITAL SIGNS: See below. NEW TEST RESULTS: N/A CURRENT MEDICATIONS: See below. MENTAL STATUS EXAMINATION: Patient is a 31year old male,cooperative, with good eye contact, pleasant, dressed in hospital clothes Speech: coherent Language skills are Intact Thought processes including: Intact Thought content: Anxious thoughts about living alone Description of associations: Good. Description of abnormal or psychotic thoughts: Denies auditory and visual hallucinations. He denies suicidal and homicidal thought and feels less paranoid Judgment: Limited. Insight: Limited. Orientation: Oriented 3. Recent and remote memory: Intact. Attention span and concentration: Fair. Language: Average Fund of knowledge: Adequate Mood: Less depressed Affect: Less anxious DIAGNOSES: 1. Major depressive disorder, recurrent, severe with psychotic features. ASSESSMENT: Patient says he has been feeling a little bit "jumpy" today. I told him I will lower Lexapro to 30 mgs. once again, because it might be that 40 mgs. is too high for him. Lowered the dose to 30 mgs and started him on Atarax 75 mgs po qidp for anxiety. MANAGEMENT PLAN.: Will continue on the same treatment plan. TIME SPENT: 30 MINUTES Vital Signs Vital Signs Date Time Temp Pulse Resp B/P (MAP) Pulse Ox O2 Delivery O2 Flow Rate FiO2 06/13/17 18:13 97.9 82 18 146/78 (100) 06/12/17 18:00 Room Air 06/08/17 10:18 96 Current Medications Current Medications Acetaminophen (Tylenol Tab) 650 mg Q6HP PRN PO HEADACHE or DISCOMFORT; Start 06/08/17 at 10:15; Stop 07/08/17 at 10:14 Al Hydrox/Mg Hydrox/Simethicone (Mylanta) 30 ml Q4HP PRN PO HEARTBURN/ INDIGESTION; Start 06/08/17 at 10:15; Stop 07/08/17 at 10:14 Escitalopram Oxalate (Lexapro) 20 mg DAILY PO Last administered on 06/09/17 08:57; Start 06/08/17 at 09:00; Stop 06/09/17 at 14:02; Status DC Escitalopram Oxalate (Lexapro) 30 mg DAILY PO Last administered on 06/11/17 08:36; Start 06/10/17 at 09:00; Stop 06/11/17 at 11:31; Status DC Escitalopram Oxalate (Lexapro) 30 mg DAILY PO ; Start 06/14/17 at 09:00; Stop 07/14/17 at 08:59; Status UNV Escitalopram Oxalate (Lexapro) 40 mg DAILY PO Last administered on 06/13/17 08:46; Start 06/12/17 at 09:00; Stop 06/13/17 at 18:25; Status DC Home Med (Med Rec Complete!) ASDIRECTED XX ; Start 06/08/17 at 10:45; Stop at 10:45; Status DC Hydroxyzine HCl (Atarax) 75 mg QIDP PRN PO ANXIETY/AGITATION; Start 06/13/17 at 18:30; Stop 07/13/17 at 18:29; Status UNV Magnesium Hydroxide (Milk Of Magnesia) 30 ml DAILYPRN PRN PO CONSTIPATION; Start 06/08/17 at 10:15; Stop 07/08/17 at 10:14 Olanzapine (ZyPREXA ZYDIS) 10 mg Q4HP PRN PO ANXIETY/AGITATION; Start at 10:15; Stop 07/08/17 at 10:14 Quetiapine Fumarate (SEROquel) 50 mg QHS PO Last administered on 06/12/17t 21: 18; Start 06/12/17 at 21:00; Stop 07/12/17 at 20:59 Quetiapine Fumarate (SEROquel) 75 mg QHS PO Last administered on 06/11/17 21: 08; Start 06/08/17 at 21:00; Stop 06/12/17 at 14:28; Status DC Allergies Coded Allergies: No Known Allergies (Unverified , 04/03/17) EMILIO FIORE MD Jun 13, 2017 18:34
[2017-06-13] MEDS: QUEtiapine FUMARATE 50 MG TAB PO SCH (20:53)
[2017-06-14 06:41] VITALS: BP 126/57
[2017-06-14] MEDS: ESCITALOPRAM OXALATE 10 MG TAB (LEXAPRO) PO SCH (08:45)
[2017-06-14 20:32] VITALS: BP 123/73
[2017-06-14] MEDS: QUEtiapine FUMARATE 50 MG TAB PO SCH (21:06)
[2017-06-15 06:43] VITALS: BP 115/65
[2017-06-15] MEDS: ESCITALOPRAM OXALATE 10 MG TAB (LEXAPRO) PO SCH (09:19)
--- NOTE | 2017-06-15 12:35 | MHIPNPDOC ---
[facility] Progress Note Progress Note DATE OF SERVICE: 06/15/17 HISTORY: As per ED report: "Patient is a 31 -year-old , male, who presented to ED after D/C from [facility]. Pt stated thinks about +SI all the time, like an alcoholic; even if you stop the act, you still have to learn to cope with the thoughts. Pt reported +SI all the time with a plan to use shotgun or razor to wrist. Pt explaned in great detail how to place razor in correct position for a successful SI. Pt reported spent 5 weeks @ [place] rehab then returned to [facility]. Threatened +HI towards , went AWOL from [facility] back home to [place]. found him, arrested him on this past Sun.and went to [facility]. Pt was escorted back to [facility] yesterday, spent night at [facility] and brought to ED via [employer] [facility] this morning. Pt has several legal issues pending. Pt reported increased anger about going for divorce. Pt currently has an OP against him. Pt stated "went through all this rehab thinking we were going to be a family again". Pt reported has no incentive to get better, would rather live in longterm. Pt reported in [employer] for 3.5 years, 1 deployment to [facility] 2014. " Today, 06/15/17, he says he feels a little bit sad because today is his son's birthday and he had a nightmare about his being with another man, tat is his constant fear. he has been dreaming more and I explained this might be because of antidepressants. Nevertheless, he says he had a good Thanksgiving yesterday. VITAL SIGNS: See below. NEW TEST RESULTS: N/A CURRENT MEDICATIONS: See below. MENTAL STATUS EXAMINATION: Patient is a 31year old male, pleasant, with good eye contact, cooperative, dressed in hospital clothes Speech: Normal in rate, tone and volume Language skills are Intact Thought processes including: Intact Thought content: Sad/depressed thoughts about not being able to be with his son today on his birthday ( his son's birthday) Description of associations: Good. Description of abnormal or psychotic thoughts: Denies auditory and visual hallucinations. He denies suicidal and homicidal thought and denies paranoid ideation Judgment: Limited. Insight: Limited. Orientation: Oriented 3. Recent and remote memory: Intact. Attention span and concentration: Fair. Language: Average Fund of knowledge: Adequate Mood: Sad Affect: Sad DIAGNOSES: 1. Major depressive disorder, recurrent, severe with psychotic features. ASSESSMENT: Patient says he feels sad today because is his one year old son's birthday and he's not able to be with him. he describes frustration because he has been wanting to talk to his wif and he knows he can't. He knows he's doing better despite today's sadness because he says " I know why I feel like that, becaus it's my son's birthday" MANAGEMENT PLAN.: Will continue on the same treatment plan. TIME SPENT: 30 MINUTES Vital Signs Vital Signs Date Time Temp Pulse Resp B/P (MAP) Pulse Ox O2 Delivery O2 Flow Rate FiO2 06/15/17 06:43 99.1 78 14 115/65 (82) Room Air Current Medications Current Medications Acetaminophen (Tylenol Tab) 650 mg Q6HP PRN PO HEADACHE or DISCOMFORT; Start 06/08/17 at 10:15; Stop 07/08/17 at 10:14 Al Hydrox/Mg Hydrox/Simethicone (Mylanta) 30 ml Q4HP PRN PO HEARTBURN/ INDIGESTION; Start 06/08/17 at 10:15; Stop 07/08/17 at 10:14 Escitalopram Oxalate (Lexapro) 20 mg DAILY PO Last administered on 06/09/17 08:57; Start 06/08/17 at 09:00; Stop 06/09/17 at 14:02; Status DC Escitalopram Oxalate (Lexapro) 30 mg DAILY PO Last administered on 06/11/17 08:36; Start 06/10/17 at 09:00; Stop 06/11/17 at 11:31; Status DC Escitalopram Oxalate (Lexapro) 30 mg DAILY PO Last administered on 06/15/17 09:19; Start 06/14/17 at 09:00; Stop 07/14/17 at 08:59 Escitalopram Oxalate (Lexapro) 40 mg DAILY PO Last administered on 06/13/17 08:46; Start 06/12/17 at 09:00; Stop 06/13/17 at 18:25; Status DC Home Med (Med Rec Complete!) ASDIRECTED XX ; Start 06/08/17 at 10:45; Stop at 10:45; Status DC Hydroxyzine HCl (Atarax) 75 mg QIDP PRN PO ANXIETY/AGITATION; Start 06/13/17 at 18:30; Stop 07/13/17 at 18:29 Magnesium Hydroxide (Milk Of Magnesia) 30 ml DAILYPRN PRN PO CONSTIPATION; Start 06/08/17 at 10:15; Stop 07/08/17 at 10:14 Olanzapine (ZyPREXA ZYDIS) 10 mg Q4HP PRN PO ANXIETY/AGITATION; Start at 10:15; Stop 07/08/17 at 10:14 Quetiapine Fumarate (SEROquel) 50 mg QHS PO Last administered on 06/14/17 21: 06; Start 06/12/17 at 21:00; Stop 07/12/17 at 20:59 Quetiapine Fumarate (SEROquel) 75 mg QHS PO Last administered on 06/11/17 21: 08; Start 06/08/17 at 21:00; Stop 06/12/17 at 14:28; Status DC Allergies Coded Allergies: No Known Allergies (Unverified , 04/03/17) EMILIO FIORE MD Jun 15, 2017 12:35
[2017-06-15 18:00] VITALS: BP 119/55
[2017-06-15] MEDS: QUEtiapine FUMARATE 50 MG TAB PO SCH (22:05)
[2017-06-16 06:32] VITALS: BP 130/56
[2017-06-16] MEDS: ESCITALOPRAM OXALATE 10 MG TAB (LEXAPRO) PO SCH (08:09)
[2017-06-16 18:00] VITALS: BP 131/65
[2017-06-16] MEDS: QUEtiapine FUMARATE 50 MG TAB PO SCH (21:45)
[2017-06-17 06:37] VITALS: BP 109/55
[2017-06-17] MEDS: ESCITALOPRAM OXALATE 10 MG TAB (LEXAPRO) PO SCH (08:25)
[2017-06-17 17:00] VITALS: BP 149/84
[2017-06-17 18:00] VITALS: BP 137/68
[2017-06-17] MEDS: QUEtiapine FUMARATE 50 MG TAB PO SCH (20:29)
[2017-06-18 06:00] VITALS: BP 112/55
[2017-06-18] MEDS: ESCITALOPRAM OXALATE 10 MG TAB (LEXAPRO) PO SCH (08:05)
[2017-06-18 08:21] VITALS: BP 112/55
[2017-06-18 18:08] VITALS: BP 133/61
--- NOTE | 2017-06-18 18:29 | MHIPNPDOC ---
[facility] Progress Note Progress Note DATE OF SERVICE: 06/18/17 HISTORY: As per ED report: "Patient is a 31 -year-old , male, who presented to ED after D/C from [facility]. Pt stated thinks about +SI all the time, like an alcoholic; even if you stop the act, you still have to learn to cope with the thoughts. Pt reported +SI all the time with a plan to use shotgun or razor to wrist. Pt explaned in great detail how to place razor in correct position for a successful SI. Pt reported spent 5 weeks @ [place] then returned to [facility]. Threatened +HI towards , went AWOL from [employer] back home to [place]. found him, arrested him on this past Sun.and went to [facility]. Pt was escorted back to [facility] yesterday, spent night at [facility] and brought to ED via [employer] [facility] this morning. Pt has several legal issues pending. Pt reported increased anger about going for divorce. Pt currently has an OP against him. Pt stated "went through all this rehab thinking we were going to be a family again". Pt reported has no incentive to get better, would rather live in long term. Pt reported in [employer] for 3.5 years, 1 deployment to [facility] 2014. VITAL SIGNS: See below. NEW TEST RESULTS: N/A CURRENT MEDICATIONS: See below. MENTAL STATUS EXAMINATION: Patient is a 31year old male, pleasant, with good eye contact, cooperative, dressed in hospital clothes Speech: Normal in rate, tone and volume, spontaneous and fluent Language skills are Intact Thought processes including: Intact Thought content: Anxious thoughts about his marital situation Description of associations: Good. Description of abnormal or psychotic thoughts: Denies auditory and visual hallucinations. He denies suicidal and homicidal thought and denies paranoid ideation Judgment: Improving Insight: Improving Orientation: Oriented 3. Recent and remote memory: Intact. Attention span and concentration: Fair. Language: Average Fund of knowledge: Adequate Mood: Euthymic Affect: Euthymic DIAGNOSES: 1. Major depressive disorder, recurrent, severe with psychotic features. ASSESSMENT: Patient says he feels better now that his son's birthday is gone and his 's BD is gone too. He is still anxious about his marital situation but he is not suicidal. He's also anxious about going back to , see his peers , to live in [place] [facility] where he used to live with his and child, dealing with the Court date and the divorce. MANAGEMENT PLAN.: Will continue on the same treatment plan. TIME SPENT: 30 MINUTES Vital Signs Vital Signs Date Time Temp Pulse Resp B/P (MAP) Pulse Ox O2 Delivery O2 Flow Rate FiO2 06/18/17 18:08 98.9 67 16 133/61 (85) 06/18/17 08:21 96 Room Air Current Medications Current Medications Acetaminophen (Tylenol Tab) 650 mg Q6HP PRN PO HEADACHE or DISCOMFORT; Start 06/08/17 at 10:15; Stop 07/08/17 at 10:14 Al Hydrox/Mg Hydrox/Simethicone (Mylanta) 30 ml Q4HP PRN PO HEARTBURN/ INDIGESTION; Start 06/08/17 at 10:15; Stop 07/08/17 at 10:14 Escitalopram Oxalate (Lexapro) 20 mg DAILY PO Last administered on 06/09/17 08:57; Start 06/08/17 at 09:00; Stop 06/09/17 at 14:02; Status DC Escitalopram Oxalate (Lexapro) 30 mg DAILY PO Last administered on 06/11/17 08:36; Start 06/10/17 at 09:00; Stop 06/11/17 at 11:31; Status DC Escitalopram Oxalate (Lexapro) 30 mg DAILY PO Last administered on 06/18/17 08:05; Start 06/14/17 at 09:00; Stop 07/14/17 at 08:59 Escitalopram Oxalate (Lexapro) 40 mg DAILY PO Last administered on 06/13/17 08:46; Start 06/12/17 at 09:00; Stop 06/13/17 at 18:25; Status DC Home Med (Med Rec Complete!) ASDIRECTED XX ; Start 06/08/17 at 10:45; Stop at 10:45; Status DC Hydroxyzine HCl (Atarax) 75 mg QIDP PRN PO ANXIETY/AGITATION; Start 06/13/17 at 18:30; Stop 07/13/17 at 18:29 Magnesium Hydroxide (Milk Of Magnesia) 30 ml DAILYPRN PRN PO CONSTIPATION; Start 06/08/17 at 10:15; Stop 07/08/17 at 10:14 Olanzapine (ZyPREXA ZYDIS) 10 mg Q4HP PRN PO ANXIETY/AGITATION; Start at 10:15; Stop 07/08/17 at 10:14 Quetiapine Fumarate (SEROquel) 50 mg QHS PO Last administered on 06/17/17t 20: 29; Start 06/12/17 at 21:00; Stop 07/12/17 at 20:59 Quetiapine Fumarate (SEROquel) 75 mg QHS PO Last administered on 06/11/17 21: 08; Start 06/08/17 at 21:00; Stop 06/12/17 at 14:28; Status DC Allergies Coded Allergies: No Known Allergies (Unverified , 04/03/17) EMILIO FIORE MD Jun 18, 2017 18:29
[2017-06-18] MEDS: QUEtiapine FUMARATE 50 MG TAB PO SCH (20:50)
[2017-06-19 06:47] VITALS: BP 114/58
[2017-06-19] MEDS: ESCITALOPRAM OXALATE 10 MG TAB (LEXAPRO) PO SCH (08:07)
[2017-06-19] MEDS ORDERED: ESCI10TA2 PO (13:05)
[2017-06-19] MEDS ORDERED: QUET5TAB PO (13:05)
--- NOTE | 2017-06-19 13:14 | MHDSPDOC ---
[facility] Discharge Summary Discharge Summary DATE OF ADMISSION: Jun 08, 2017 at 10:05 DATE OF DISCHARGE: DISCHARGE DIAGNOSES: 1. 1. Major depressive disorder, recurrent 2. . REASON FOR ADMISSION: Patient was referred by a behavioral health at [place] for suicidal ideation ". History of Present Illness As per ED report: "Patient is a 31 -year-old , male, who presented to ED after D/C from [facility]. Pt stated thinks about +SI all the time, like an alcoholic; even if you stop the act, you still have to learn to cope with the thoughts. Pt reported +SI all the time with a plan to use shotgun or razor to wrist. Pt explaned in great detail how to place razor in correct position for a successful SI. Pt reported spent 5 weeks @ [place] rehab then returned to [facility]. Threatened +HI towards , went AWOL from [employer] back home to [place]. found him, arrested him on this past Sun.and went to [facility]. Pt was escorted back to [facility] yesterday, spent night at [facility] and brought to ED via [facility] this morning. Pt has several legal issues pending. Pt reported increased anger about going for divorce. Pt currently has an OP against him. Pt stated "went through all this rehab thinking we were going to be a family again". Pt reported has no incentive to get better, would rather live in shelter. Pt reported in [employer] for 3.5 years, 1 deployment to [facility] 2014. " CONSULTANTS INVOLVED: None TREATMENT AND PROGRESS ON THE UNIT : . HOSPITAL COURSE: DISCHARGE ASSESSMENT: MENTAL STATUS EXAMINATION ON DISCHARGE: Patient is a 31-year old male, who is alert, cooperative, dressed in personal clothes, good eye contact, pleaseant Speech is spontaneous and fluent Language skills are Good Thought processes including: Linear, logical Thought content: Anxious thoughts about going to Court Abstract reasoning, and computation: Good Description of associations: Good Description of abnormal or psychotic thoughts: Denies SI/HI, denies A/V, denies thought delusions Judgment: Improved Insight: Improved Orientation to person, place and time Recent and remote memory: Intact. Attention span and concentration: Fair. Language: Good. Fund of knowledge: Adequate. Mood: Euthymic. Affect: Euthymic. MEDICATIONS ON DISCHARGE: Escitalopram Oxalate (Escitalopram Oxalate) 10 Mg Tab, 30 MG PO DAILY for DEPRESSION, #21 Quetiapine Fumerate (Quetiapine Fumarate) 50 Mg Tab, 50 MG PO QHS for insomnia, #7 PLAN/FOLLOWUP ARRANGEMENTS: * Mental Health Appt 1 * Mental Health 2nd Embedded * Therapist Jinny Aparicio * Date Jun 21, 2017 * Time 10:00 Follow Up Care Education Label * Mental Health Appt 2 * Mental Health 2nd Embedded BH * Therapist Jinny Aparicio * Date Jun 27, 2017 * Time 11:00 Follow Up Care Education Label * Medical * Medical Follow Up 2D [facility]/2BCT * Date Jul 13, 2017 * Time 13:00 * Additional information 2D [facility]/2BCT ALYCIA JEROME [email or web address] SPEC/90 -Initial Med Eval Follow Up Care Education Label * Mental Health Appt 3 * Mental Health 1st Embedded * Therapist Susan Koenig * Date Jun 20, 2017 * Time 10:00 * Additional information The amount of time spent in the coordination of care for this patient was approximately 30 minutes. Vital Signs/I&Os Vital Signs Date Time Temp Pulse Resp B/P (MAP) Pulse Ox O2 Delivery O2 Flow Rate FiO2 06/19/17 06:47 98.7 57 14 114/58 (76) Room Air 06/18/17 08:21 96 Medications Scheduled Escitalopram Oxalate (Escitalopram Oxalate) 10 Mg Tab, 30 MG PO DAILY for DEPRESSION, #21 Quetiapine Fumerate (Quetiapine Fumarate) 50 Mg Tab, 50 MG PO QHS for insomnia, #7 Allergies Coded Allergies: No Known Allergies (Unverified , 04/03/17) EMILIO FIORE MD Jun 19, 2017 13:14
== END 2017-06-19 14:00 | disposition home or self-care (01) | DRG 885 ==
LOC: M ED 07:23 → M ED INP 10:05 → M PSY 10:50
PROVIDERS: ADMIT Psychiatry & Neurology Psychiatry; ATTEND Psychiatry & Neurology Psychiatry
DX: F33.9 Major depressive disorder, recurrent, unspecified (principal); R45.851 Suicidal ideations; Z68.28 Body mass index [BMI] 28.0-28.9, adult

== ENCOUNTER 2017-08-16 17:45 | Inpatient (IN) | payer OTHER ==
[2017-08-16 19:28] LABS: HEMATOCRIT 46.8 % (42.0-52.0); HEMOGLOBIN 16.1 g/dl (14.0-18.0); MEAN CORPUSCULAR HEMOGLOBIN 30.4 pg (27.0-33.0); MEAN CORPUSCULAR HGB CONC 34.4 g/dl (32.0-36.5); MEAN CORPUSCULAR VOLUME 88.3 fl (80.0-96.0); PLATELET COUNT, AUTOMATED 262 10^3/uL (150-450); RED CELL DISTRIBUTION WIDTH 12.6 % (11.5-14.5)
[2017-08-16 20:10] LABS: AMPHETAMINES LEVEL URINE NEGATIVE (NEGATIVE); BARBITURATES URINE NEGATIVE (NEGATIVE); BENZODIAZEPINES URINE NEGATIVE (NEGATIVE); CANNABINOIDS URINE NEGATIVE (NEGATIVE); COCAINE METABOLITE URINE NEGATIVE (NEGATIVE); METHADONE URINE NEGATIVE (NEGATIVE); OPIATES URINE NEGATIVE (NEGATIVE); PHENCYCLIDINE URINE NEGATIVE (NEGATIVE)
[2017-08-16 20:13] LABS: ALBUMIN 4.3 GM/DL (3.2-5.2); ALBUMIN/GLOBULIN RATIO 1.08 (1.00-1.93); ALKALINE PHOSPHATASE 121 U/L (45-117); ALT/SGPT 24 U/L (12-78); ANION GAP 8 MEQ/L (8-16); AST/SGOT 15 U/L (7-37); BILIRUBIN,DIRECT < 0.1 MG/DL (0.0-0.2); BILIRUBIN,TOTAL 0.4 MG/DL (0.2-1.0); BLOOD UREA NITROGEN 11 MG/DL (7-18); CALCIUM LEVEL 9.3 MG/DL (8.5-10.1); CARBON DIOXIDE LEVEL 29 MEQ/L (21-32); CHLORIDE LEVEL 104 MEQ/L (98-107); CREATININE FOR GFR 1.02 MG/DL (0.70-1.30); ETHYL ALCOHOL (ETHANOL) 0.006 % (0.000-0.010); GLOMERULAR FILTRATION RATE > 60.0 (>60); GLUCOSE, FASTING 95 MG/DL (70-100); POTASSIUM SERUM 4.2 MEQ/L (3.5-5.1); SALICYLATE LEVEL < 1.7 MG/DL (5.0-30.0); SODIUM LEVEL 141 MEQ/L (136-145); TOTAL PROTEIN 8.3 GM/DL (6.4-8.2)
[2017-08-16 20:22] LABS: ACETAMINOPHEN LEVEL < 2.0 UG/ML (10.0-30.0)
[2017-08-16] MEDS ORDERED: MAALOX 30 ML SUSP *UDC PO (21:00)
[2017-08-16] MEDS ORDERED: traZODone 50 MG TAB PO (21:00)
[2017-08-16] MEDS ORDERED: MOM 30ML SUSPENSION UDC PO (21:00)
[2017-08-16] MEDS ORDERED: ACETAMINOPHEN TAB 650MG DOSE (2X325MG) PO (21:00)
[2017-08-17] MEDS: ESCITALOPRAM OXALATE 10 MG TAB (LEXAPRO) PO (13:40)
[2017-08-17] MEDS: hydrOXYzine 50 MG TAB PO (19:09)
[2017-08-17] MEDS: QUEtiapine FUMARATE 50 MG TAB PO (22:01)
[2017-08-18] MEDS: ESCITALOPRAM OXALATE 10 MG TAB (LEXAPRO) PO (08:29)
[2017-08-18] MEDS: QUEtiapine FUMARATE 50 MG TAB PO (21:02)
[2017-08-19] MEDS: ESCITALOPRAM OXALATE 10 MG TAB (LEXAPRO) PO (08:07)
[2017-08-19] MEDS: hydrOXYzine 50 MG TAB PO (20:11)
[2017-08-19] MEDS: QUEtiapine FUMARATE 50 MG TAB PO (22:16)
[2017-08-20] MEDS: ESCITALOPRAM OXALATE 10 MG TAB (LEXAPRO) PO (08:09)
[2017-08-20] MEDS: QUEtiapine FUMARATE 50 MG TAB PO (21:00)
[2017-08-21] MEDS: ESCITALOPRAM OXALATE 10 MG TAB (LEXAPRO) PO (08:38)
[2017-08-21] MEDS: QUEtiapine FUMARATE 50 MG TAB PO (20:56)
[2017-08-22] MEDS: ESCITALOPRAM OXALATE 10 MG TAB (LEXAPRO) PO (08:07)
[2017-08-22] MEDS: QUEtiapine FUMARATE 50 MG TAB PO (21:01)
[2017-08-23] MEDS: ESCITALOPRAM OXALATE 10 MG TAB (LEXAPRO) PO (08:21)
[2017-08-23] MEDS: hydrOXYzine 50 MG TAB PO (09:16)
== END 2017-08-23 10:45 | disposition home or self-care (01) | DRG 885 ==
LOC: M ED 17:45 → M ED INP 20:56 → M PSY 21:45
DX: F33.2 Major depressive disorder, recurrent severe without psychotic features (principal); F60.3 Borderline personality disorder; F43.10 Post-traumatic stress disorder, unspecified

== ENCOUNTER 2018-05-24 20:12 | Inpatient (IN) | payer OTHER, SELFPAY ==
[2018-05-24 21:16] LABS: HEMATOCRIT 42.7 % (42.0-52.0); HEMOGLOBIN 14.8 g/dl (13.5-17.5); MEAN CORPUSCULAR HEMOGLOBIN 30.7 pg (27.0-33.0); MEAN CORPUSCULAR HGB CONC 34.7 g/dl (32.0-36.5); MEAN CORPUSCULAR VOLUME 88.6 fl (80.0-96.0); PLATELET COUNT, AUTOMATED 244 10^3/uL (150-450); RED BLOOD COUNT 4.82 10^6/uL (4.30-6.10); RED CELL DISTRIBUTION WIDTH 12.9 % (11.5-14.5); WHITE BLOOD COUNT 6.6 10^3/uL (4.0-10.0)
[2018-05-24 21:40] LABS: AMPHETAMINES LEVEL URINE NEGATIVE (NEGATIVE); BARBITURATES URINE NEGATIVE (NEGATIVE); BENZODIAZEPINES URINE NEGATIVE (NEGATIVE); CANNABINOIDS URINE NEGATIVE (NEGATIVE); COCAINE METABOLITE URINE NEGATIVE (NEGATIVE); METHADONE URINE NEGATIVE (NEGATIVE); OPIATES URINE NEGATIVE (NEGATIVE); PHENCYCLIDINE URINE NEGATIVE (NEGATIVE)
[2018-05-24 21:49] LABS: ACETAMINOPHEN LEVEL < 2.0 UG/ML (10.0-30.0); ALBUMIN 3.6 GM/DL (3.2-5.2); ALKALINE PHOSPHATASE 106 U/L (45-117); ALT/SGPT 37 U/L (12-78); ANION GAP 9 MEQ/L (8-16); AST/SGOT 32 U/L (7-37); BILIRUBIN,DIRECT < 0.1 MG/DL (0.0-0.2); BILIRUBIN,TOTAL 0.5 MG/DL (0.2-1.0); BLOOD UREA NITROGEN 16 MG/DL (7-18); CALCIUM LEVEL 8.2 MG/DL (8.5-10.1); CARBON DIOXIDE LEVEL 28 MEQ/L (21-32); CHLORIDE LEVEL 103 MEQ/L (98-107); CREATININE FOR GFR 1.13 MG/DL (0.70-1.30); ETHYL ALCOHOL (ETHANOL) < 0.003 % (0.000-0.010); GLOMERULAR FILTRATION RATE > 60.0 (>60); GLUCOSE, FASTING 118 MG/DL (70-100); POTASSIUM SERUM 4.2 MEQ/L (3.5-5.1); SALICYLATE LEVEL < 1.7 MG/DL (5.0-30.0); SODIUM LEVEL 140 MEQ/L (136-145); TOTAL PROTEIN 7.2 GM/DL (6.4-8.2)
[2018-05-27] MEDS ORDERED: MOM 30ML SUSPENSION UDC PO (15:00)
[2018-05-27] MEDS ORDERED: traZODone 50 MG TAB PO (15:00)
[2018-05-27] MEDS ORDERED: MAALOX 30 ML SUSP *UDC PO (15:00)
[2018-05-27] MEDS ORDERED: ACETAMINOPHEN TAB 650MG DOSE (2X325MG) PO (15:00)
[2018-05-31] MEDS: hydrOXYzine 50 MG TAB PO (18:55)
[2018-06-01] MEDS: VENLAFAXINE 37.5 MG TAB PO (08:28)
[2018-06-02] MEDS: VENLAFAXINE 37.5 MG TAB PO (08:18)
[2018-06-03] MEDS: VENLAFAXINE 37.5 MG TAB PO (08:22)
[2018-06-03] MEDS: hydrOXYzine 50 MG TAB PO (21:07)
[2018-06-04] MEDS: VENLAFAXINE 37.5 MG TAB PO (08:22)
== END 2018-06-04 11:07 | disposition home or self-care (01) | DRG 885 ==
LOC: M ED INP 05-27 14:49 → M PSY 05-27 15:25 → M ED 20:12
DX: F33.9 Major depressive disorder, recurrent, unspecified (principal); R45.851 Suicidal ideations; F41.1 Generalized anxiety disorder; R45.850 Homicidal ideations

== ENCOUNTER 2019-06-17 18:53 | Emergency (ER) | payer OTHER ==
[~2019-06-17] VITALS: Ht 190.5 cm; Wt 113.1 kg
[~2019-06-17 18:53] MED LIST changes: +HYDR1TAB33 PO; +HYDR50CA2 PO; +LEXA1TAB PO; +LEXA1TAB2 PO; +QUET5TAB PO; +TRAZ-252 PO; +TRAZ1TAB10 PO; +VENL37TA PO; +VIST50CA PO
[2019-06-17 20:43] LABS: BASO % 0.3 % (0.0-1.0); EOS # 0.1 10^3/uL (0.0-0.5); EOS % 1.3 % (0.0-3.0); HEMATOCRIT 44.6 % (42.0-52.0); HEMOGLOBIN 14.9 g/dl (13.5-17.5); LYMPH # 2.5 10^3/uL (1.5-5.0); LYMPH % 34.4 % (24.0-44.0); MEAN CORPUSCULAR HEMOGLOBIN 30.3 pg (27.0-33.0); MEAN CORPUSCULAR HGB CONC 33.4 g/dl (32.0-36.5); MEAN CORPUSCULAR VOLUME 90.8 fl (80.0-96.0); MONO # 0.6 10^3/uL (0.0-0.8); MONO % 7.9 % (0.0-5.0); NEUTROPHILS % 55.7 % (36.0-66.0); PLATELET COUNT, AUTOMATED 224 10^3/uL (150-450); RED BLOOD COUNT 4.91 10^6/uL (4.30-6.10); WHITE BLOOD COUNT 7.2 10^3/uL (4.0-10.0)
[2019-06-17 21:14] LABS: BLOOD UREA NITROGEN 14 MG/DL (7-18); CALCIUM LEVEL 8.6 MG/DL (8.5-10.1); CARBON DIOXIDE LEVEL 26 MEQ/L (21-32); CHLORIDE LEVEL 107 MEQ/L (98-107); CK-MB VALUE MASS 1.3 NG/ML (<3.6); CPK CREATINE PHOSPHOKINASE 181 U/L (39-308); GLOMERULAR FILTRATION RATE > 60.0 (>60); GLUCOSE, FASTING 93 MG/DL (70-100); MB/CK RELATIVE INDEX 0.72 (< OR =4); POTASSIUM SERUM 4.3 MEQ/L (3.5-5.1); SODIUM LEVEL 138 MEQ/L (136-145); TROPONIN I < 0.02 NG/ML (< 0.10)
[2019-06-17 21:47] LABS: ERYTHROCYTE SEDIMENTATION RATE 8 mm/hr (0-15)
[2019-06-17] MEDS ORDERED: hydrOXYzine 50 MG TAB PO STA (22:29)
[2019-06-17] MEDS ORDERED: ACETAMINOPHEN TAB 650MG DOSE (2X325MG) PO ONE (22:30)
[2019-06-17 22:40] VITALS: BP 133/68
--- NOTE | 2019-06-18 07:34 | REP ---
Clinical: Acute chest pain . Comparison: None . Technique: PA and lateral. Findings: The mediastinum and cardiac silhouette are normal. The lung [place] are clear and without acute consolidation, effusion, or pneumothorax. The skeletal structures are intact and normal. Impression: 1. No acute cardiopulmonary process. Electronically Signed by Eris Sim MD 06/18/2019 07:26 A
--- NOTE | 2019-06-18 08:54 | ECGEPIP ---
[facility] - ED Test Date: 2019-06-17 Pat Name: ATILIO WALLS Department: Room: - Gender: Male Manager Crisis: : 1985 Requested By: DANA ARCHIBALD Order Number: [id number] Reading MD: Danie Velarde Measurements Intervals [place] Rate: 56 P: 45 UT: 149 QRS: 69 QRSD: 102 T: 62 QT: 405 QTc: 393 Interpretive Statements SINUS BRADYCARDIA POOR R WAVE PROGRESSION BENIGN EARLY REPOLARIZATION SIMILAR TO 05/24/18 Electronically Signed on 06-18-2019 8:54:19 EST by Danie Velarde
== END 2019-06-17 22:42 | disposition home or self-care (01) ==
LOC: M ED 18:53
DX: R07.9 Chest pain, unspecified (principal); M79.602 Pain in left arm; F41.9 Anxiety disorder, unspecified; R94.31 Abnormal electrocardiogram [ECG] [EKG]; I10 Essential (primary) hypertension; E78.5 Hyperlipidemia, unspecified; K21.9 Gastro-esophageal reflux disease without esophagitis